=== PATIENT | male | born 1955 | race Caucasian/White ===

== ENCOUNTER 2018-12-24 06:15 | Inpatient (IN) | payer MEDICARE ==
[2018-12-24] VITALS (7 sets, daily range): BP systolic 108–134; BP diastolic 41–72; BMI 28.1
[~2018-12-24] VITALS: Ht 190.5 cm; Wt 101.1 kg
[2018-12-24] MEDS ORDERED: COREG6.25 MG PO (06:23)
[2018-12-24] MEDS ORDERED: LISINOPRIL5 MG (06:23)
[2018-12-24] MEDS ORDERED: FUROSEMIDE20 MG PO (06:24)
[2018-12-24] MEDS ORDERED: ZOCOR10 MG PO (06:24)
[2018-12-24] MEDS ORDERED: TYLENOL W/CODEI1 TAB PO (06:25)
[2018-12-24] MEDS ORDERED: BAYER CHEWABLE81 MG PO (06:25)
[2018-12-24] MEDS ORDERED: KRILL OIL 1,001 EAC1 PO (06:25)
[2018-12-24] MEDS ORDERED: HUMALOG 30100 UNITS/ SC (06:26)
[2018-12-24] MEDS ORDERED: HUMULIN N100 U/ML (06:26)
[2018-12-24 07:20] LABS: ALBUMIN 2.8 g/dL (3.4-5.0); ANION GAP 13.5 mmol/L (8-16); BILIRUBIN - TOTAL 0.55 mg/dL (0.2-1.3); CALCIUM 8.4 mg/dL (8.5-10.1); CARBON DIOXIDE 30.1 mmol/L (21.0-32.0); CREATININE - SERUM 1.3 mg/dL (0.6-1.3); POTASSIUM - SERUM 3.6 mmol/L (3.5-5.1); PROTEIN - SERUM 7.7 g/dL (6.4-8.2)
--- NOTE | 2018-12-24 07:35 | NUR ---
HAND-OFF REPORT RECEIVED FROM OFF GOING NURSE SALBADOR Redmond RN.
[2018-12-24 07:59] LABS: BASOPHILS 0.1 % (0-2); EOSINOPHILS 0 % (0-7); HEMATOCRIT 43.5 % (42.0-54.0); HEMOGLOBIN 13.7 g/dL (13.5-17.5); IMMATURE GRANULOCYTES 0.3 % (0-5); LYMPHOCYTES 3.9 % (15-50); MCH 30.8 pg (26.0-34.0); MCHC 31.5 g/dL (31.0-37.0); MCV 97.8 fL (80.0-100.0); MEAN PLATELET VOLUME 10.8 fL (7.4-10.4); MONOCYTES 4.2 % (2-11); NEUTROPHILS 91.5 % (40-80); RBC 4.45 10x6/uL (4.20-6.10); RDW 13.3 % (11.5-14.5); WBC 11.5 10x3/uL (4.8-10.8)
[2018-12-24 08:06] LABS: PLATELET COUNT 149 10x3/uL (130-400)
[2018-12-24 08:12] LABS: CKMB 2.3 U/L (0.0-3.6); CREATINE KINASE 180 UL (21-232); TROPONIN-I < 0.017 ng/mL (0.000-0.060)
[2018-12-24 08:16] LABS: APTT 29.9 SECONDS (22.8-39.4); INR 1.11 (0.85-1.17); PROTIME 13.8 SECONDS (11.6-15.0)
--- NOTE | 2018-12-24 10:05 | NUR ---
IV IN THE LEFT FOREARM INFILTRATED. SITE RED AND EDEMATOUS. ORDERED VANCOMYCIN INFUSION PAUSED, IV DC'D. WARM COMPRESS APPLIED TO THE LEFT FOREARM. WILL ATTEMPT ADDITIONAL IV START AND THEN CONTINUE WITH ORDERED INFUSION.
--- NOTE | 2018-12-24 10:16 | NUR ---
AWAITING ARRIVAL OF ORDERED CARDIZEM INFUSION FROM PHARMACY. LR BOLUS COMPLETE, VANCOMYCIN INFUSION RESTARTED IN THE RIGHT FOREARM.
--- NOTE | 2018-12-24 10:38 | NUR ---
ROOM 1205 ASSIGNED AT 0906, PT UNABLE TO GO TO THIS BED D/T CARDIZEM INFUSION. AWAITING NEW BED ASSIGNEMENT FROM LIBERAL ARTS DEAN.
--- NOTE | 2018-12-24 10:43 | NUR ---
PT PREVIOUSLY REQUESTED PAIN MEDICATION, OFFERED ORDERED PRN TYLENOL AND PT REFUSED. PT STATED "THAT ISN'T GOING TO DO ANYTHING."
--- NOTE | 2018-12-24 10:46 | NUR ---
22 GUAGE IV INITIATED IN THE LEFT WRIST PER Kanu BASHIR RN VASCULAR ACCESS NURSE. WILL BEGIN ORDERED CARDIZEM INFUSION.
--- NOTE | 2018-12-24 11:11 | NUR ---
ORDERED VANCOMYCIN COMPLETE AT 1110.
--- NOTE | 2018-12-24 11:30 | NUR ---
PT GIVEN ADA LUNCH TRAY ORDERED. PT ALERT AND ORIENTED, RESPIRATIONS EVEN AND UNLABORED. IV INFUSING WITHOUT SIGNS OF INFILTRATION. O2 IN PLACE VIA NC. PT AWARE HE IS BEING ADMITTED, AWAITING BED ASSIGNMENT. CALL LIGHT IN REACH, WILL CONTINUE TO MONITOR.
[2018-12-24] MEDS ORDERED: OTC COUGH SYRUP PO (11:33)
--- NOTE | 2018-12-24 12:18 | MORECARE ---
CASE MANAGEMENT DISCHARGE SUMMARY PATIENT: REBECA LAWSON UNIT: [id number] ADM DATE: 12/24/18 AGE: 63 : 54 SEX: M ROOM/BED: D.2127 AUTHOR: CECILIA QUINONEZ PHYSICIAN: REFERRING PHYSICIAN: TITI DAUGHERTY MD DATE OF SERVICE: 12/24/18 Discharge Plan Patient Name: REBECA LAWSON [facility] [facility] 1955 Planned Disposition: Home Anticipated Discharge Date: 12/26/18 Discharge Date: Expected LOS: 2 Initial Reviewer: [email or web address] Initial Review Date: 12/24/2018 Generated: 12/24/18 1:17 pm Patient Name: REBECA LAWSON Page [id number] at 1218 All edits/amendments must be made on the electronic document DICTATION DATE: 12/24/187 STAFF RESEARCH ASSOCIATE: AGUSTIN 12/24/18 1217 RPT#: [id number] DC DATE: STATUS: ADM IN [facility] [address] [place] [address] END OF REPORT
--- NOTE | 2018-12-24 12:26 | MORECARE ---
CASE MANAGEMENT DISCHARGE SUMMARY PATIENT: REBECA LAWSON UNIT: [id number] ADM DATE: 12/24/18 AGE: 63 : 54 SEX: M ROOM/BED: D.2127 AUTHOR: CECILIA QUINONEZ PHYSICIAN: REFERRING PHYSICIAN: TITI DAUGHERTY MD DATE OF SERVICE: 12/24/18 Discharge Plan Patient Name: REBECA LAWSON [facility] [facility] 1955 Planned Disposition: Home Anticipated Discharge Date: 12/26/18 Discharge Date: Expected LOS: 2 Initial Reviewer: [email or web address] Initial Review Date: 12/24/2018 Generated: 12/24/18 1:26 pm DCPIA - Discharge Planning Initial Assessment Updated by [email or web address]: Debbie Alexander on 12/24/18 12:20 pm * Is the patient Alert and Oriented? Yes * How many steps to enter\exit or inside your home? none * PCP Dr. Daugherty * Pharmacy [facility] * Preadmission Environment Home Alone * ADLs Independent * Equipment Cane Glucometer Power Chair or Electric Scooter * List name and contact numbers for known caregivers / representatives who currently or will assist patient after discharge: Meagan Quinteros - lands resource manager - [phone] * Verbal permission to speak to the caregivers and representatives has been obtained from the patient. Yes * Community resources currently utilized None * Additional services required to return to the preadmission environment? No * Can the patient safely return to the preadmission environment? Yes * Has this patient been hospitalized within the prior 30 days at any hospital? No Last DP export: 12/24/18 11:17 a Patient Name: REBECA LAWSON Page [phone] at 1226 All edits/amendments must be made on the electronic document DICTATION DATE: 12/24/18 1226 ELECTRONIC GAME DEVELOPER: AGUSTIN 12/24/186 RPT#: [id number] DC DATE: STATUS: ADM IN [facility] [address] [place] [address] END OF REPORT
--- NOTE | 2018-12-24 12:42 | MORECARE ---
CASE MANAGEMENT DISCHARGE SUMMARY PATIENT: REBECA LAWSON UNIT: [id number] ADM DATE: 12/24/18 AGE: 63 : 54 SEX: M ROOM/BED: D.6360 AUTHOR: DEVIDOC PHYSICIAN: REFERRING PHYSICIAN: TITI DAUGHERTY MD DATE OF SERVICE: 12/24/18 Discharge Plan Patient Name: REBECA LAWSON Facility: [facility]:[place] : 1955 Planned Disposition: Home Anticipated Discharge Date: 12/26/18 Discharge Date: Expected LOS: 2 Initial Reviewer: [email or web address] Initial Review Date: 12/24/2018 Generated: 12/24/18 1:41 pm DCP- Discharge Planning Updated by [email or web address]: Debbie Alexander on 12/24/18 11:[address] Patient Name: REBECA LAWSON Admission Status: ER Accout number: [id number] Admission Date: 12-24-2018 : 1955 Admission Diagnosis: Attending: TITI DAUGHERTY Current LOS: 1 Anticipated DC Date: 12-26-2018 Planned Disposition: Home Primary Insurance: [facility] MEDICARE SOLUTIONS Discharge Planning Comments: CM met with patient to complete initial dc planning assessment. CM educated patient on the CM role and verbal consent given by patient to complete assessment. Patient lives at home alone and reports he is independent in his care at home. At discharge patient plans to return home alone and feels this is a safe discharge. CM discussed availability of home health, rehab services, and medical equipment. Patient denied known discharge needs at this time. He said he may need something but not sure today. CM will continue to follow and will assist as needed with dc plans/needs. Director Strategic Planning: Debbie Alexander RN, [facility] DCPIA - Discharge Planning Initial Assessment Updated by [email or web address]: Debbie Alexander on 12/24/18 12:20 pm * Is the patient Alert and Oriented? Yes * How many steps to enter\exit or inside your home? none * PCP Dr. Daugherty * Pharmacy [facility] on [facility] * Preadmission Environment Home Alone * ADLs Independent * Equipment Cane Glucometer Power Chair or Electric Scooter * List name and contact numbers for known caregivers / representatives who currently or will assist patient after discharge: Meagan Quinteros - accounting advisory services manager - [phone] * Verbal permission to speak to the caregivers and representatives has been obtained from the patient. Yes * Community resources currently utilized None * Additional services required to return to the preadmission environment? No * Can the patient safely return to the preadmission environment? Yes * Has this patient been hospitalized within the prior 30 days at any hospital? No Last DP export: 12/24/18 11:26 a Patient Name: REBECA LAWSON Page [phone] at 1242 All edits/amendments must be made on the electronic document DICTATION DATE: 12/24/18 124 EXCHANGE ENGINEER: AGUSTIN 12/24/18 1241 RPT#: [id number] DC DATE: STATUS: ADM IN [facility] [address] [place] [address] END OF REPORT
[2018-12-24 16:52] LABS: COLOR YELLOW (YELLOW)
[2018-12-24 16:53] LABS: APPEARANCE CLEAR (CLEAR); BILIRUBIN NEGATIVE (NEGATIVE); GLUCOSE 1000 mg/dL (NEGATIVE); KETONE NEGATIVE (NEGATIVE); NITRITE NEGATIVE (NEGATIVE); PROTEIN NEGATIVE (NEGATIVE); SPECIFIC GRAVITY 1.025 (1.005-1.020); UROBILINOGEN NORMAL (NORMAL)
--- NOTE | 2018-12-24 17:50 | NUR ---
PATIENT ADMITTED TO UNIT FROM ER VIA WC. PATIENT TRANSFERED TO BED BY PT. PATIENT ORIENTED TO ROOM AND CALL LIGHT. IV TO LEFT FOREARM WITH CARDIZEM DRIP 5MG/HR. 02 AT 2 L PER NC. ASSESSMENT COMPLETED. PATIENT DENIES ANY NEEDS OR PAIN. WILL CONTINUE WITH PLAN OF CARE. SR UP X 2 BED IN LOW POSITION AND CALL LIGHT IN REACH.
--- NOTE | 2018-12-24 18:28 | NUR ---
DR MCKEON IN ROOM. VSS STABLE AND PATIENT UNCHAGED. WILL CONTINUE TO MONITOR.
--- NOTE | 2018-12-24 19:37 | NUR ---
EVENING ROUNDS COMPLETED. REPORT RECEIVED. PT SITTING UP IN BED WITH EYES OPEN, RR EVEN AND UNLABORED. BED IN LOW POSITION. NO S/S OF DISTRESS NOTED. CARDIZEM INFUSING THROUGH LEFT WRIST PIV. TELEMETRY ESTABLISHED. PROVIDED PT EDUCATION ON NECESSITY OF TELEMETRY. DENIES FURTHER NEEDS AT THIS TIME. CALL LIGHT IN REACH. WILL CTM.
--- NOTE | 2018-12-24 23:30 | NUR ---
AT 2100 TREATED PT BLOOD SUGAR OF 442 ACCORDING TO SLIDING SCALE, AFTER 2 HOURS RECHECKED PT BLOOD SUGAR, IT WAS 393. TREATED THE BLOOD SUGAR ACCORDING TO THE SLIDING SCALE. WILL CTM.
--- NOTE | 2018-12-25 | NUR ---
I have reviewed this patient and I concur with the Shift Assessment completed by the Licensed Practical Nurse today this shift.
[2018-12-25 00:09] VITALS: BP 125/88
[2018-12-25] MEDS ORDERED: NEURONTIN 300300 MG PO (00:35)
[2018-12-25 04:11] VITALS: BP 107/55
[2018-12-25 05:26] LABS: BASOPHILS 0.1 % (0-2); EOSINOPHILS 0 % (0-7); HEMATOCRIT 40.8 % (42.0-54.0); HEMOGLOBIN 12.9 g/dL (13.5-17.5); IMMATURE GRANULOCYTES 0.4 % (0-5); LYMPHOCYTES 1.9 % (15-50); MCH 30.6 pg (26.0-34.0); MCHC 31.6 g/dL (31.0-37.0); MCV 96.7 fL (80.0-100.0); MEAN PLATELET VOLUME 10.9 fL (7.4-10.4); MONOCYTES 2.1 % (2-11); NEUTROPHILS 95.5 % (40-80); PLATELET COUNT 164 10x3/uL (130-400); RBC 4.22 10x6/uL (4.20-6.10); RDW 13.3 % (11.5-14.5)
[2018-12-25 05:32] LABS: ALBUMIN 2.7 g/dL (3.4-5.0); ALKALINE PHOSPHATASE 107 U/L (46-116); BILIRUBIN - TOTAL 0.36 mg/dL (0.2-1.3); CALCIUM 8.7 mg/dL (8.5-10.1); CARBON DIOXIDE 33.6 mmol/L (21.0-32.0); CHLORIDE - SERUM 99 mmol/L (98-107); PROTEIN - SERUM 7.6 g/dL (6.4-8.2); SODIUM 136 mmol/L (136-145); UREA NITROGEN 24 mg/dL (7-18); eGFR NON AFRICAN AMERICAN 80 mL/min (90-120)
[2018-12-25 05:34] LABS: WBC 16.8 10x3/uL (4.8-10.8)
[2018-12-25 05:42] LABS: ALT (SGPT) 17 U/L (10-68); CALC OSMOLALITY 286 mosm/kg (275-300); GLUCOSE 305 mg/dL (74-106); POTASSIUM - SERUM 4.4 mmol/L (3.5-5.1)
--- NOTE | 2018-12-25 06:19 | NUR ---
284 BLOOD SUGAR TREATED ORDERED PER SLIDING SCALE. ADMINISTERED ORDERED ANALGESIC FOR COMPLAINTS OF PAIN IN LOWER EXTREMITIES. PT APPEARS TO BE UPSET THAT HIS PRESCRIBED NEURONTIN WAS NOT ADMINISTERED, I STATED TO HIM THAT I WOULD PASS ON THIS INFORMATION TO THE ONCOMING NURSE.
--- NOTE | 2018-12-25 07:40 | NUR ---
ASSESSMENT DONE. DENIES NEEDS.
[2018-12-25 08:18] VITALS: BP 123/66
[2018-12-25 11:30] VITALS: BP 97/48
--- NOTE | 2018-12-25 15:09 | NUR ---
I have reviewed this patient and I concur with the Shift Assessment completed by the Licensed Practical Nurse today this shift.
[2018-12-25 15:30] VITALS: BP 98/57
--- NOTE | 2018-12-25 17:44 | NUR ---
WITHOUT CHANGES OR DISTRESS NOTED AT THIS TIME. DENIES NEEDS.
[2018-12-25 18:20] VITALS: Ht 190.5 cm; Wt 101.1 kg
--- NOTE | 2018-12-25 18:30 | HP ---
PATIENT: REBECA LAWSON MEDICAL RECORD: [id number] ACCOUNT: [id number] LOCATION:[address] : [birth year] ADMISSION DATE: 12/24/18 PCP: TITI DAUGHERTY MD HISTORY AND PHYSICAL EXAMINATION CHIEF COMPLAINT: Weakness. HISTORY OF PRESENT ILLNESS: This is a 63-year-old white male who has a history of diabetes, chronic back pain, coronary artery disease, and a history of non-small cell lung cancer treated with chemo and radiation by Dr. Choudhary years ago. He has been in remission. He had acute episode of generalized weakness over the last several days. He got up to go the bathroom last night and fell down. He was too weak to get up. He was on the floor for a few hours before he was able to get EMS to come and bring him to the ER. Chest x-ray shows near complete obscuration of right hemithorax with loculated pleural effusion and pneumonia. EKG also showed atrial fibrillation. He is admitted for further care. PAST MEDICAL HISTORY: 1. Type 2 diabetes, on insulin. 2. Nonsmall cell lung cancer 3. Chronic back pain. 4. Coronary artery disease. 5. Cataracts. PAST SURGICAL HISTORY: Cataract repair, [address] Clarke, left shoulder surgery, and knee surgery times 3. ALLERGIES: No known drug allergies. HOME MEDICATIONS: Tylenol #3 one to two every 8 hours as needed for pain, carvedilol 6.25 mg twice a day, Lantus insulin 50 units twice a day, gabapentin 400 mg 1-2 t.i.d. for pain, Krill oil as directed, simvastatin 20 mg a day, lisinopril 10 mg a day, Lasix 40 mg a day, Humalog 20 mg twice a day, and aspirin 325 mg once a day. SOCIAL HISTORY: Lives alone. HABITS: Never smoked. No alcohol or drugs. FAMILY HISTORY: Father at 80 of natural causes. Mother in a car wreck. REVIEW OF SYSTEMS: GENERAL: No major weight changes. HEENT: No particular sinus or allergy problems. RESPIRATORY: Has history of lung cancer. He is having some chest pains when I saw him about a month ago in the office. He had a chest x-ray then that showed some white out most likely the pleural effusion, but most of his pain is on the left side. CARDIAC: No chest pain. GASTROINTESTINAL: Denies diarrhea, constipation, or heartburn. GENITOURINARY: No significant problems there. MUSCULOSKELETAL: He has arthritis, chronic back pain. NEUROLOGIC: No migraines or seizures. HISTORY AND PHYSICAL [id number] REBECA LAWSON PSYCHIATRIC: Denies depression or melancholia. PHYSICAL EXAMINATION: VITAL SIGNS: Temperature 98.5, pulse 100, respirations 19, blood pressure 115/47, O2 sat 96%. GENERAL: He does not feel well. SKIN: Warm and dry. HEENT: Grossly within normal limits. NECK: Supple. HEART: Regular rate and rhythm now. LUNGS: Decreased breath sounds on the right side, a few scattered wheezes. ABDOMEN: Soft. EXTREMITIES: A 1+ edema. LABORATORY DATA: Influenza tests were negative. Lactic acid level 2.5. CBC with a white count of 11,500, hemoglobin 13.7, hematocrit 43.5, platelet count 149,000. INR 1.11. Sodium 135, potassium 3.6, chloride 95, CO2 30.1, BUN 20, creatinine 1.3, glucose 230, calcium 8.4. Liver enzymes are all normal. Troponin less than 0.017. ASSESSMENT: 1. Pneumonia and pleural effusion. 2. History of non-small cell lung cancer. 3. Diabetes. 4. Atrial fibrillation. 5. History of coronary artery disease. PLAN: We will ask pulmonary to see him. Consult cardiology. He is started on antibiotics. Other tests or procedures as warranted. TRANSINT:[id number] Voice Confirmation ID: [id number] DOCUMENT ID: [id number] TITI DAUGHERTY MD at 1830 CC: [id number] DICTATION DATE: 12/24/18 1406 WET FINISHER: 12/24/18 1458 ADM IN [facility] [address] [place] [address]
[2018-12-25 19:45] VITALS: BP 123/64
--- NOTE | 2018-12-25 20:45 | NUR ---
RECIEVED UP IN BED WITH EYES CLOSED. EASILY AROUSES WITH VERBAL STIMULI. TELEMETRY IN PLACE. FEET ARE DISCOLORED AND HAVE +4 PITTING EDEMA. PULLED IV OUT WILL ATTEMPT TO AQUIRE IV ACCESS. DENIES ANY NEEDS.
[2018-12-26 00:29] VITALS: BP 114/45
[2018-12-26 03:55] VITALS: BP 110/48
[2018-12-26 04:58] LABS: BASOPHILS 0 % (0-2); EOSINOPHILS 0 % (0-7); HEMATOCRIT 39.4 % (42.0-54.0); HEMOGLOBIN 12.6 g/dL (13.5-17.5); IMMATURE GRANULOCYTES 0.4 % (0-5); LYMPHOCYTES 1.6 % (15-50); MCH 30.7 pg (26.0-34.0); MCV 95.9 fL (80.0-100.0); MONOCYTES 3.6 % (2-11); NEUTROPHILS 94.4 % (40-80); RBC 4.11 10x6/uL (4.20-6.10); RDW 13.5 % (11.5-14.5); WBC 18.2 10x3/uL (4.8-10.8)
[2018-12-26 05:07] LABS: PLATELET COUNT 199 10x3/uL (130-400)
[2018-12-26 05:12] LABS: INR 1.09 (0.85-1.17); PROTIME 13.6 SECONDS (11.6-15.0)
[2018-12-26 05:15] LABS: CALC OSMOLALITY 286 mosm/kg (275-300); CALCIUM 8.6 mg/dL (8.5-10.1); CARBON DIOXIDE 34.5 mmol/L (21.0-32.0); CHLORIDE - SERUM 99 mmol/L (98-107); CREATININE - SERUM 0.8 mg/dL (0.6-1.3); GLUCOSE 277 mg/dL (74-106); LDH 186 U/L (85-227); POTASSIUM - SERUM 3.9 mmol/L (3.5-5.1); SODIUM 136 mmol/L (136-145); UREA NITROGEN 27 mg/dL (7-18); eGFR NON AFRICAN AMERICAN > 90 mL/min (90-120)
--- NOTE | 2018-12-26 07:12 | NUR ---
ASSESSMENT DONE. DENIES NEEDS.
--- NOTE | 2018-12-26 08:03 | NUR ---
I have reviewed this patient and I concur with the Shift Assessment completed by the Licensed Practical Nurse today this shift.
[2018-12-26 09:00] VITALS: BP 103/55
[2018-12-26 12:41] VITALS: BP 122/61
[2018-12-26 16:25] VITALS: BP 120/51
--- NOTE | 2018-12-26 17:46 | NUR ---
WITHOUT CHANGES OR DISTRESS NOTED AT THIS TIME. DENIES NEEDS.
--- NOTE | 2018-12-26 19:15 | NUR ---
EVENING ROUNDS COMPLETED. REPORT RECEIVED. PT SITTING UP IN BEDSIDE CHAIR WITH EYES OPEN, RR EVEN AND UNLABORED. INTRODUCED SELF TO PT. PT DENIES FURTHER NEEDS AT THIS TIME. NO S/S OF DISTRESS NOTED. CALL LIGHT IN REACH. WILL CTM.
[2018-12-26 20:26] VITALS: BP 122/65
--- NOTE | 2018-12-26 23:36 | NUR ---
I have reviewed this patient and I concur with the Shift Assessment completed by the Licensed Practical Nurse today this shift.
[2018-12-27 01:37] VITALS: BP 107/55
--- NOTE | 2018-12-27 04:44 | NUR ---
ADMINISTERED ORDERED ANALGESIC FOR PT COMPLAINTS OF PAIN IN BACK. DENIES FURTHER NEEDS AT THIS TIME. CALL LIGHT IN REACH. WILL CTM.
[2018-12-27 05:31] VITALS: BP 117/59
[2018-12-27 06:16] LABS: BASOPHILS 0 % (0-2); EOSINOPHILS 0 % (0-7); HEMOGLOBIN 12.6 g/dL (13.5-17.5); IMMATURE GRANULOCYTES 0.3 % (0-5); LYMPHOCYTES 2.1 % (15-50); MCH 30.4 pg (26.0-34.0); MCHC 31.5 g/dL (31.0-37.0); MCV 96.6 fL (80.0-100.0); MEAN PLATELET VOLUME 10.8 fL (7.4-10.4); MONOCYTES 2.2 % (2-11); NEUTROPHILS 95.4 % (40-80); PLATELET COUNT 206 10x3/uL (130-400); RBC 4.14 10x6/uL (4.20-6.10); RDW 13.5 % (11.5-14.5); WBC 15.3 10x3/uL (4.8-10.8)
[2018-12-27 06:27] LABS: CALC OSMOLALITY 291 mosm/kg (275-300); CALCIUM 8.7 mg/dL (8.5-10.1); CHLORIDE - SERUM 99 mmol/L (98-107); CREATININE - SERUM 0.9 mg/dL (0.6-1.3); GLUCOSE 292 mg/dL (74-106); POTASSIUM - SERUM 4.3 mmol/L (3.5-5.1); SODIUM 138 mmol/L (136-145); UREA NITROGEN 27 mg/dL (7-18); eGFR NON AFRICAN AMERICAN 90 mL/min (90-120)
--- NOTE | 2018-12-27 08:00 | NUR ---
RECEIVED A/A/0X4. REMAINS NPO FOR THORACENTESES TODAY AND VERBALIZES UNDERSTANDING. NO REQUESTS VOICED. DENEIS ANY PAIN OR DISCOMFORT. UP AND ABOUT AD VIKRAM IN ROOM WITH AIDE OF HIS CANE. FEET 4+ PITTING EDEMA BILATERALLY WITH WEAK PULSES AND COOL TO TOUCH. PT STATES HIS FEET HAVE BEEN LIKE THAT FOR NEARLY 40 YEARS. BED IN LOW POSITION AND LOCKED, SIDERAILS UP X 2 AND CALL LIGHT IN REACH. PT UP IN BEDSIDE CHAIR AT PRESENT TIME. WILL CONTINUE POC
[2018-12-27 08:23] VITALS: BP 123/64
[2018-12-27 11:52] VITALS: BP 136/82
--- NOTE | 2018-12-27 12:56 | NUR ---
Nutrition follow-up: Pt is now NPO for thoracentesis today PO intake of low sodium diet has been ~65% of last 7 meals Labs reviewed Glucose elevated due to SoluMedrol use Wt: 225# +BM RDN following.
--- NOTE | 2018-12-27 18:53 | NUR ---
RECIEVED SITTING UP ON SIDE OF BED. ALERT AND ORIENTED X4. REQUIRES ASSIST TO TRANSFER. FEET REMAIN DISCOLRED AND SWOLLEN WITH RIGHT FOOT LARGER THAN LEFT. DRESSING TO RIGHT SIDE OF BACK. CDI. DENIES ANY NEEDS AT THIS TIME.
[2018-12-27 19:01] LABS: PROTEIN - BODY FLUID 4.1 G/DL
[2018-12-27 21:00] LABS: MACROPHAGES BF 5 %; NEUT - BF 12 %
[2018-12-27 21:23] VITALS: BP 149/81
[2018-12-28] VITALS (7 sets, daily range): BP systolic 106–140; BP diastolic 54–77
[2018-12-28 06:54] LABS: BASOPHILS 0 % (0-2); EOSINOPHILS 0 % (0-7); HEMATOCRIT 43.6 % (42.0-54.0); IMMATURE GRANULOCYTES 0.2 % (0-5); LYMPHOCYTES 2.1 % (15-50); MCH 30.6 pg (26.0-34.0); MCHC 32.1 g/dL (31.0-37.0); MCV 95.4 fL (80.0-100.0); MEAN PLATELET VOLUME 10.7 fL (7.4-10.4); MONOCYTES 4.8 % (2-11); NEUTROPHILS 92.9 % (40-80); PLATELET COUNT 226 10x3/uL (130-400); RBC 4.57 10x6/uL (4.20-6.10); RDW 13.2 % (11.5-14.5); WBC 12.6 10x3/uL (4.8-10.8)
--- NOTE | 2018-12-28 07:15 | NUR ---
RECEIVED BEDSIDE SHIFT REPORT. ASSUMED CARE OF PATIENT. SITTING UP IN BED WITH EYES OPEN. CALL LIGHT WITHIN REACH. DENIES NEEDS THIS AM. BACK IS STILL HURTING BUT HAD PAIN MEDICATION AT 0544. NO DISTRESS. RESP EVEN AND UNLABORED.
[2018-12-28 07:19] LABS: ANION GAP 8.7 mmol/L (8-16); CARBON DIOXIDE 34.4 mmol/L (21.0-32.0); CREATININE - SERUM 1.1 mg/dL (0.6-1.3); POTASSIUM - SERUM 4.1 mmol/L (3.5-5.1)
[2018-12-28 07:31] LABS: CALCIUM 8.7 mg/dL (8.5-10.1)
[2018-12-28 07:31] LABS: IMMUNOGLOBULIN A 406 mg/dL (61-437)
--- NOTE | 2018-12-28 07:38 | NUR ---
PATIENT REFUSED METANEB TX DUE TO PAIN FROM PROCEDURE YESTERDAY. HE DID AGREE TO REGULAR BREATHING TX
--- NOTE | 2018-12-28 10:18 | NUR ---
TELEMETRY REMOVED ORDERED.
--- NOTE | 2018-12-28 11:29 | NUR ---
FSBS 279. 10 UNITS HUMULIN R ADMINISTERED PER SLIDING SCALE. NO DISTRESS.
--- NOTE | 2018-12-28 14:18 | NUR ---
MEDICATED FOR PAIN AT THIS TIME. NO DISTREESS.
--- NOTE | 2018-12-28 16:51 | NUR ---
FSBS 446. 20 UNITS ADMINISTERED PER SLIDING SCALE. NO FURTHER ORDERS RECEIVED. WILL RECHECK AT 181
--- NOTE | 2018-12-28 18:07 | NUR ---
FSBS RECHECKED AND 396 AFTER RECEIVING INSULIN AND CONSUMING PM MEAL.
--- NOTE | 2018-12-28 19:00 | NUR ---
UP IN CHAIR ASSISTED TO GET READY FOR BED. LCTA AND SKIN WARM AND DRY LOCKED BED AND BED IS LOW AND CALL LIGHT IN REACH
--- NOTE | 2018-12-29 03:51 | NUR ---
I have reviewed this patient and I concur with the Shift Assessment completed by the Licensed Practical Nurse today this shift.
[2018-12-29 05:06] LABS: BASOPHILS 0.1 % (0-2); EOSINOPHILS 0 % (0-7); HEMATOCRIT 41.6 % (42.0-54.0); HEMOGLOBIN 13.5 g/dL (13.5-17.5); IMMATURE GRANULOCYTES 0.4 % (0-5); LYMPHOCYTES 5.1 % (15-50); MCH 30.5 pg (26.0-34.0); MCHC 32.5 g/dL (31.0-37.0); MCV 94.1 fL (80.0-100.0); MEAN PLATELET VOLUME 10.9 fL (7.4-10.4); MONOCYTES 5.1 % (2-11); NEUTROPHILS 89.3 % (40-80); PLATELET COUNT 221 10x3/uL (130-400); RBC 4.42 10x6/uL (4.20-6.10); RDW 12.9 % (11.5-14.5); WBC 15.2 10x3/uL (4.8-10.8)
[2018-12-29 05:21] VITALS: BP 117/63
[2018-12-29 05:23] LABS: CALC OSMOLALITY 283 mosm/kg (275-300); CALCIUM 8.6 mg/dL (8.5-10.1); CARBON DIOXIDE 33.8 mmol/L (21.0-32.0); CHLORIDE - SERUM 98 mmol/L (98-107); CREATININE - SERUM 0.9 mg/dL (0.6-1.3); SODIUM 135 mmol/L (136-145); UREA NITROGEN 31 mg/dL (7-18); eGFR NON AFRICAN AMERICAN 90 mL/min (90-120)
[2018-12-29 05:24] LABS: GLUCOSE 225 mg/dL (74-106)
--- NOTE | 2018-12-29 07:15 | NUR ---
PT SITTING UP IN BED. ALERT AND ORIENTED. URINAL EMTPIED. PT HAS NO FURTHER NEEDS AT THIS TIME. BED LOW. CL IN REACH.
--- NOTE | 2018-12-29 07:39 | NUR ---
PATIENT REFUSED METANEB DUE TO PAIN FROM PROCEDURE
[2018-12-29 08:22] VITALS: BP 122/72
--- NOTE | 2018-12-29 10:00 | NUR ---
PT BATHED SELF EXCEPT FEET AND BACK DIRECTOR OF KIDS HELPED PT WITH THAT. PT DID THIS WHILE SITTING IN RECLINER.
[2018-12-29 12:07] VITALS: BP 115/90
--- NOTE | 2018-12-29 14:05 | NUR ---
I have reviewed this patient and I concur with the Shift Assessment completed by the Licensed Practical Nurse today this shift.
[2018-12-29 14:19] LABS: FUNGUS STAIN Final report (())
--- NOTE | 2018-12-29 14:51 | MORECARE ---
CASE MANAGEMENT DISCHARGE SUMMARY PATIENT: REBECA LAWSON UNIT: [id number] ADM DATE: 12/24/18 AGE: 63 : 53 SEX: M ROOM/BED: D.0465 AUTHOR: CECILIA QUINONEZ PHYSICIAN: REFERRING PHYSICIAN: TITI DAUGHERTY MD DATE OF SERVICE: 12/29/18 Discharge Plan Patient Name: REBECA LAWSON Facility: [facility]:[place] : 1955 Planned Disposition: Home with Home Health Anticipated Discharge Date: 12/30/18 Discharge Date: Expected LOS: 6 Initial Reviewer: [email or web address] Initial Review Date: 12/24/2018 Generated: 12/29/18 3:51 pm DCP- Discharge Planning Updated by [email or web address]: Debbie Alexander on 12/24/18 11:[address] Patient Name: REBECA LAWSON Admission Status: ER Accout number: [id number] Admission Date: 12-24-2018 : 1955 Admission Diagnosis: Attending: TITI DAUGHERTY Current LOS: 1 Anticipated DC Date: 12-26-2018 Planned Disposition: Home Primary Insurance: [facility] MEDICARE SOLUTIONS Discharge Planning Comments: CM met with patient to complete initial dc planning assessment. CM educated patient on the CM role and verbal consent given by patient to complete assessment. Patient lives at home alone and reports he is independent in his care at home. At discharge patient plans to return home alone and feels this is a safe discharge. CM discussed availability of home health, rehab services, and medical equipment. Patient denied known discharge needs at this time. He said he may need something but not sure today. CM will continue to follow and will assist as needed with dc plans/needs. Ground Crewman Aircraft Support: Debbie Alexander RN, [facility] DCPIA - Discharge Planning Initial Assessment Updated by [id number]: Debbie Alexander on 12/24/18 12:20 pm * Is the patient Alert and Oriented? Yes * How many steps to enter\exit or inside your home? none * PCP Dr. Daugherty * Pharmacy [facility]/[place] * Preadmission Environment Home Alone * ADLs Independent * Equipment Cane Glucometer Power Chair or Electric Scooter * List name and contact numbers for known caregivers / representatives who currently or will assist patient after discharge: Meagan Quinteros - client delivery manager - [phone] * Verbal permission to speak to the caregivers and representatives has been obtained from the patient. Yes * Community resources currently utilized None * Additional services required to return to the preadmission environment? No * Can the patient safely return to the preadmission environment? Yes * Has this patient been hospitalized within the prior 30 days at any hospital? No External Providers [facility] Next Contact Date: 12/29/2018 Service Request Date: Service Type: Resolution: Reviewer: Comments: Coverage Notice Reviewer: [email or web address] Kimble Notice Issued Date-Time: 12/29/2018 9:25 Notice Type: IM Discharge Notice Notice Delivered To: Patient Relationship to Patient: Operator/Assistant Foreman Name: Delivery Method: HAND - Hand Delivered Adri Days: Prior Verbal Notification: Recipient Understood Notice: Yes Recipient Signature: Yes Med Rec Note Co-signed by Attending: Coverage Notice Comment: Reviewer: GARRET Kimble Notice Issued Date-Time: 12/29/2018 9:25 Notice Type: Patient Choice Letter Notice Delivered To: Patient Relationship to Patient: Operator/Assistant Foreman Name: Delivery Method: HAND - Hand Delivered Adri Days: Prior Verbal Notification: Recipient Understood Notice: Yes Recipient Signature: Yes Med Rec Note Co-signed by Attending: Coverage Notice Comment: [employer], LONG IN NETWORK WITH INSURANCE Last DP export: 12/24/18 11:41 a Patient Name: REBECA LAWSON Page [phone] at 1451 All edits/amendments must be made on the electronic document DICTATION DATE: 12/29/181450 WORKPLACE RELATIONS ADVISER: AGUSTIN 12/29/18 145 RPT#: [id number] DC DATE: STATUS: ADM IN [facility] [address] [place] [address] END OF REPORT
[2018-12-29 15:30] VITALS: BP 117/90
--- NOTE | 2018-12-29 15:32 | MORECARE ---
CASE MANAGEMENT DISCHARGE SUMMARY PATIENT: REBECA LAWSON UNIT: [id number] ADM DATE: 12/24/18 AGE: 63 : 53 SEX: M ROOM/BED: D.7551 AUTHOR: DEVI,DOC PHYSICIAN: REFERRING PHYSICIAN: TITI DAUGHERTY MD DATE OF SERVICE: 12/29/18 Discharge Plan Patient Name: REBECA LAWSON Facility: [facility]:[place] : 1955 Planned Disposition: Home with Home Health Anticipated Discharge Date: 12/30/18 Discharge Date: Expected LOS: 6 Initial Reviewer: [id number] Initial Review Date: 12/24/2018 Generated: 12/29/18 4:32 pm Comments DCP- Discharge Planning Updated by [email or web address]: Balwinder Kimble on 12/29/18 2:[address] Patient Name: REBECA LAWSON Encounter No: [id number] : 1955 Primary Insurance: [facility] MEDICARE SOLUTIONS Anticipated DC Date: 12-30-2018 Planned Disposition: Home with Home Health External Planned Provider: : [facility] DCP follow-up note: CM RECEIVED HOME HEALTH ORDER, MET WITH PT IN ROOM, DISCUSSED AVAILABILITY OF HOME HEALTH, REHAB SERVICES AND MEDICAL EQUIPMENT. PT DENIES NEED OF REHAB PLACEMENT, PT STATES HE DOES NOT NEED PHYSICAL THERAPY WITH HOME HEALTH HE FEELS THAT HE WOULD NOT BENEFIT FROM THERAPY. PT WOULD LIKE HOME HEALTH NURSE TO CHECK ON HIM AND AIDE TO HELP HIM BATHE; PT ASKED ABOUT HAVING RESEARCH MANAGEMENT ASSOCIATE SERVICES TO SIT WITH HIM AT NIGHT. CM EXPLAINED THAT PT'S INSURANCE WILL NOT PAY FOR RESEARCH MANAGEMENT ASSOCIATE SERVICES AND PROVIDED NUMBER AND BROCHURE TO " A PLACE FOR MOM" TO ASSIST WITH EVALUATING PT'S FINANCIAL SITUATION AND REFERRAL TO APPROPRIATE HOME CARE AGENCY. PT DENIES THE NEED AT THIS TIME. PT REPORTS A FRIEND WILL TRANSPORT HOME AT DISCHARGE. CHOICE LISTING FOR HOME HEALTH PROVIDED, PT SIGNED CHOICE FOR [facility]. IMPORTANT MESSAGE FROM MEDICARE PROVIDED AND EXPLAINED. CM CALLED [facility], , SPOKE TO YOANDY, REFERRAL PROVIDED, PT PLACED ON SCHEDULE FOR THURSDAY, THEY ARE IN NETWORK WITH PT'S INSURANCE. CM FAXED REFERRALTO [facility] AT [phone]. PT NOTIFIED AND IN AGREEMENT WITH DISCHARGE PLAN. FOR DISCHARGE, CALL AND NOTIFY [facility], , FAX DISCHARGE INFORMATION TO [facility] AT [phone]. Balwinder Kimble, CASE MANAGEMENT DCP- Discharge Planning Updated by [id number]: Debbie Alexander on 12/24/18 11:[address] Patient Name: REBECA LAWSON Admission Status: ER Accout number: [id number] Admission Date: 12-24-2018 : 1955 Admission Diagnosis: Attending: TITI DAUGHERTY Current LOS: 1 Anticipated DC Date: 12-26-2018 Planned Disposition: Home Primary Insurance: [facility] MEDICARE SOLUTIONS Discharge Planning Comments: CM met with patient to complete initial dc planning assessment. CM educated patient on the CM role and verbal consent given by patient to complete assessment. Patient lives at home alone and reports he is independent in his care at home. At discharge patient plans to return home alone and feels this is a safe discharge. CM discussed availability of home health, rehab services, and medical equipment. Patient denied known discharge needs at this time. He said he may need something but not sure today. CM will continue to follow and will assist as needed with dc plans/needs. Electrician Rectifier Maintenance: Debbie Alexander RN, [facility] DCPIA - Discharge Planning Initial Assessment Updated by [id number]: Debbie Alexander on 12/24/18 12:20 pm * Is the patient Alert and Oriented? Yes * How many steps to enter\\exit or inside your home? none * PCP Dr. Daugherty * Pharmacy [facility] on [facility] * Preadmission Environment Home Alone * ADLs Independent * Equipment Cane Glucometer Power Chair or Electric Scooter * List name and contact numbers for known caregivers / representatives who currently or will assist patient after discharge: Meagan Quinteros - hourly shift manager - [phone] * Verbal permission to speak to the caregivers and representatives has been obtained from the patient. Yes * Community resources currently utilized None * Additional services required to return to the preadmission environment? No * Can the patient safely return to the preadmission environment? Yes * Has this patient been hospitalized within the prior 30 days at any hospital? No Coverage Notice Reviewer: [id number] - Balwinder Kimble Notice Issued Date-Time: 12/29/2018 9:25 Notice Type: IM Discharge Notice Notice Delivered To: Patient Relationship to Patient: Consumer Loan Officer Name: Delivery Method: HAND - Hand Delivered Adri Days: Prior Verbal Notification: Recipient Understood Notice: Yes Recipient Signature: Yes Med Rec Note Co-signed by Attending: Coverage Notice Comment: Reviewer: [id number] Iván Kimble Notice Issued Date-Time: 12/29/2018 9:25 Notice Type: Patient Choice Letter Notice Delivered To: Patient Relationship to Patient: Consumer Loan Officer Name: Delivery Method: HAND - Hand Delivered Adri Days: Prior Verbal Notification: Recipient Understood Notice: Yes Recipient Signature: Yes Med Rec Note Co-signed by Attending: Coverage Notice Comment: [facility], LONG IN NETWORK WITH INSURANCE Last DP export: 12/29/18 1:51 p Patient Name: REBECA LAWSON Page [id number] at 1532 All edits/amendments must be made on the electronic document DICTATION DATE: 12/29/18 153 PSYCHOLOGICAL OPERATIONS: AGUSTIN 12/29/18 1531 RPT#: [id number] DC DATE: STATUS: ADM IN [facility] [address] [place] [address] END OF REPORT
--- NOTE | 2018-12-29 15:35 | NUR ---
PT SITTING IN RECLINER CHAIR. CL IN REACH.
[2018-12-29 15:45] LABS: TRIGLYCERIDE - BODY FLUID 236 mg/dL
[2018-12-29 15:52] LABS: CHOLESTEROL - BODY FLUID 21 mg/dL
--- NOTE | 2018-12-29 18:55 | NUR ---
AWAKE AND ALERT MAKING NEEDS KNOWN OX4. SITTING UP IN CHAIR AT THIS TIME AND FEET ARE SWOLLEN BILAT. DENIES NEEDS BED IS LOCKED AND LOW AND CALL LIGHT IS WITHIN REACH
[2018-12-29 20:07] LABS: ACID FAST SMEAR Negative (()); AFB SPECIMEN PROCESSING Concentration (())
[2018-12-29 20:57] VITALS: BP 122/67
--- NOTE | 2018-12-29 21:29 | NUR ---
AWAKE IN BED SRX2 LUNGS CLEAR SKIN WARM AND DRY EDEMA TO FEET SOME BETTER PITTING AT 2
[2018-12-29 23:59] VITALS: BP 113/63
--- NOTE | 2018-12-30 02:35 | NUR ---
I have reviewed this patient and I concur with the Shift Assessment completed by the Licensed Practical Nurse today this shift.
[2018-12-30 05:27] VITALS: BP 86/48
[2018-12-30 06:11] LABS: BASOPHILS 0 % (0-2); EOSINOPHILS 0.2 % (0-7); HEMATOCRIT 40.3 % (42.0-54.0); HEMOGLOBIN 13.2 g/dL (13.5-17.5); IMMATURE GRANULOCYTES 0.9 % (0-5); LYMPHOCYTES 3.5 % (15-50); MCH 30.3 pg (26.0-34.0); MCHC 32.8 g/dL (31.0-37.0); MCV 92.6 fL (80.0-100.0); MEAN PLATELET VOLUME 10.5 fL (7.4-10.4); MONOCYTES 8.7 % (2-11); NEUTROPHILS 86.7 % (40-80); PLATELET COUNT 203 10x3/uL (130-400); RBC 4.35 10x6/uL (4.20-6.10); RDW 12.9 % (11.5-14.5); WBC 13.2 10x3/uL (4.8-10.8)
[2018-12-30 06:28] LABS: CALC OSMOLALITY 284 mosm/kg (275-300); CALCIUM 8.2 mg/dL (8.5-10.1); CARBON DIOXIDE 34.9 mmol/L (21.0-32.0); CHLORIDE - SERUM 97 mmol/L (98-107); CREATININE - SERUM 0.9 mg/dL (0.6-1.3); POTASSIUM - SERUM 4.2 mmol/L (3.5-5.1); SODIUM 134 mmol/L (136-145); UREA NITROGEN 31 mg/dL (7-18); eGFR NON AFRICAN AMERICAN 90 mL/min (90-120)
[2018-12-30 06:29] LABS: GLUCOSE 280 mg/dL (74-106)
[2018-12-30 08:48] VITALS: BP 110/68
[2018-12-30 12:44] VITALS: BP 121/64
--- NOTE | 2018-12-30 14:14 | NUR ---
Diabetic diet with 100% intake of meals Pt having a BM now Reviewed chart BG is running high for BG checks Plans to d/c tomorrow. Will provide diabetic education material RD following
[2018-12-30 17:09] VITALS: BP 100/55
--- NOTE | 2018-12-30 17:53 | NUR ---
BS 475. 20 U GIVEN AND WILL RECHECK IN [address] DAUGHERTY.
--- NOTE | 2018-12-30 19:36 | NUR ---
RECIEVED BEDSIDE REPORT. ROUNDS COMPLETED. VSS, AAOX4. NO S/S OF RR DISTRESS, RR EVEN AND UNLABORED. FOUND PT SITTING IN THE CHAIR PT STATES HE DID NOT DO MUCH TODAY, STATES HE IS BEEN SITTING ALL DAY. PT BLOOD SUGAR WAS 571. NOTIFIED DR HECK, DR HECK STATES TO GIVE 20 UNITS PER SLIDING SCALE. PT CURRENTLY DENIES ANY NEEDS AT THIS TIME. WILL CPOC. CL IN REACH, BED IN LOW SR UP X2.
[2018-12-30 20:00] VITALS: BP 104/63
[2018-12-30 22:06] LABS: IMMUNOGLOBULIN E 10 IU/mL (6-495)
[2018-12-31] VITALS: BP 101/55
[2018-12-31] MEDS ORDERED: PREDNISONE20 MG PO (00:45)
[2018-12-31] MEDS ORDERED: TYLENOL W/CODEI1 TAB PO (00:46)
[2018-12-31] MEDS ORDERED: OMNICEF300 MG PO (00:47)
[2018-12-31] MEDS ORDERED: CARDIZEM60 MG PO (00:47)
[2018-12-31] MEDS ORDERED: VIBRAMYCIN 100100 MG PO (00:47)
[2018-12-31] MEDS ORDERED: NEURONTIN 400400 MG PO (00:48)
--- NOTE | 2018-12-31 01:15 | NUR ---
PT CURRENTLY RESTING IN BED WITH EYES CLOSE. WILL CPOC. CL IN REACH, BED IN LOW, SR UP X2.
[2018-12-31 04:00] VITALS: BP 116/66
--- NOTE | 2018-12-31 07:41 | NUR ---
PT AWAKE AND ORIENTED. VERY PLESANT, STATES HE ONLY WANTS HIS BREAKFAST. REFUSED ALL MORNING TREATMENTS, MEDICATIONS, VS EXT. PT HAS D/C IN, IS WAITING UNTIL THE D/C NURSE ARVIES AND IS ABLE TO DO IT.
--- NOTE | 2018-12-31 09:25 | MORECARE ---
CASE MANAGEMENT DISCHARGE SUMMARY PATIENT: REBECA LAWSON UNIT: [id number] ADM DATE: 12/24/18 AGE: 63 : 53 SEX: M ROOM/BED: D.9373 AUTHOR: DEVIDOC PHYSICIAN: REFERRING PHYSICIAN: TITI DAUGHERTY MD DATE OF SERVICE: 12/31/18 Discharge Plan Patient Name: REBECA LAWSON Facility: [facility]:[place] : 1955 Planned Disposition: Home with Home Health Anticipated Discharge Date: 12/31/18 Discharge Date: Expected LOS: 7 Initial Reviewer: [id number] Initial Review Date: 12/24/2018 Generated: 12/31/18 10:25 am Comments DCP- Discharge Planning Updated by [id number]: Balwinder Kimble on 12/29/18 2:[address] Patient Name: REBECA LAWSON Encounter No: [id number] : 1955 Primary Insurance: [facility] MEDICARE SOLUTIONS Anticipated DC Date: 12-30-2018 Planned Disposition: Home with Home Health External Planned Provider: : [facility] DCP follow-up note: CM RECEIVED HOME HEALTH ORDER, MET WITH PT IN ROOM, DISCUSSED AVAILABILITY OF HOME HEALTH, REHAB SERVICES AND MEDICAL EQUIPMENT. PT DENIES NEED OF REHAB PLACEMENT, PT STATES HE DOES NOT NEED PHYSICAL THERAPY WITH HOME HEALTH HE FEELS THAT HE WOULD NOT BENEFIT FROM THERAPY. PT WOULD LIKE HOME HEALTH NURSE TO CHECK ON HIM AND AIDE TO HELP HIM BATHE; PT ASKED ABOUT HAVING SAND AND GRAVEL PLANT OPERATOR SERVICES TO SIT WITH HIM AT NIGHT. CM EXPLAINED THAT PT'S INSURANCE WILL NOT PAY FOR SAND AND GRAVEL PLANT OPERATOR SERVICES AND PROVIDED NUMBER AND BROCHURE TO " A PLACE FOR MOM" TO ASSIST WITH EVALUATING PT'S FINANCIAL SITUATION AND REFERRAL TO APPROPRIATE HOME CARE AGENCY. PT DENIES THE NEED AT THIS TIME. PT REPORTS A FRIEND WILL TRANSPORT HOME AT DISCHARGE. CHOICE LISTING FOR HOME HEALTH PROVIDED, PT SIGNED CHOICE FOR [facility]. IMPORTANT MESSAGE FROM MEDICARE PROVIDED AND EXPLAINED. CM CALLED [facility], , SPOKE TO YOANDY, REFERRAL PROVIDED, PT PLACED ON SCHEDULE FOR THURSDAY, THEY ARE IN NETWORK WITH PT'S INSURANCE. CM FAXED REFERRALTO [facility] AT [phone]. PT NOTIFIED AND IN AGREEMENT WITH DISCHARGE PLAN. FOR DISCHARGE, CALL AND NOTIFY [facility], , FAX DISCHARGE INFORMATION TO [facility] AT [phone]. Balwinder Kimble, CASE MANAGEMENT DCP- Discharge Planning Updated by [id number]: Debbie Alexander on 12/24/18 11:[address] Patient Name: REBECA LAWSON Admission Status: ER Accout number: [id number] Admission Date: 12-24-2018 : 1955 Admission Diagnosis: Attending: TITI DAUGHERTY Current LOS: 1 Anticipated DC Date: 12-26-2018 Planned Disposition: Home Primary Insurance: [facility] MEDICARE SOLUTIONS Discharge Planning Comments: CM met with patient to complete initial dc planning assessment. CM educated patient on the CM role and verbal consent given by patient to complete assessment. Patient lives at home alone and reports he is independent in his care at home. At discharge patient plans to return home alone and feels this is a safe discharge. CM discussed availability of home health, rehab services, and medical equipment. Patient denied known discharge needs at this time. He said he may need something but not sure today. CM will continue to follow and will assist as needed with dc plans/needs. Slurry Control Operator Helper: Debbie Alexander RN, [facility] DCPIA - Discharge Planning Initial Assessment Updated by [id number]: Debbie Alexander on 12/24/18 12:20 pm * Is the patient Alert and Oriented? Yes * How many steps to enter\\exit or inside your home? none * PCP Dr. Daugherty * Pharmacy [facility] on [facility] * Preadmission Environment Home Alone * ADLs Independent * Equipment Cane Glucometer Power Chair or Electric Scooter * List name and contact numbers for known caregivers / representatives who currently or will assist patient after discharge: Meagan Quinteros - apartment community manager - [phone] * Verbal permission to speak to the caregivers and representatives has been obtained from the patient. Yes * Community resources currently utilized None * Additional services required to return to the preadmission environment? No * Can the patient safely return to the preadmission environment? Yes * Has this patient been hospitalized within the prior 30 days at any hospital? No Coverage Notice Reviewer: [id number] - Balwinder Kimble Notice Issued Date-Time: 12/29/2018 9:25 Notice Type: IM Discharge Notice Notice Delivered To: Patient Relationship to Patient: Homicide Squad Sergeant Name: Delivery Method: HAND - Hand Delivered Adri Days: Prior Verbal Notification: Recipient Understood Notice: Yes Recipient Signature: Yes Med Rec Note Co-signed by Attending: Coverage Notice Comment: Reviewer: [id number] Iván Kimble Notice Issued Date-Time: 12/29/2018 9:25 Notice Type: Patient Choice Letter Notice Delivered To: Patient Relationship to Patient: Homicide Squad Sergeant Name: Delivery Method: HAND - Hand Delivered Adri Days: Prior Verbal Notification: Recipient Understood Notice: Yes Recipient Signature: Yes Med Rec Note Co-signed by Attending: Coverage Notice Comment: [facility], LONG IN NETWORK WITH INSURANCE Last DP export: 12/29/18 2:32 p Patient Name: REBECA LAWSON Page 03725 at 0925 All edits/amendments must be made on the electronic document DICTATION DATE: 12/31/18923 GAME AGENT: AGUSTIN 12/31/18923 RPT#: [id number] DC DATE: STATUS: ADM IN [facility] [address] [place] [address] END OF REPORT
--- NOTE | 2018-12-31 09:32 | MORECARE ---
CASE MANAGEMENT DISCHARGE SUMMARY PATIENT: REBECA LAWSON UNIT: [id number] ADM DATE: 12/24/18 AGE: 63 : 53 SEX: M ROOM/BED: D.6752 AUTHOR: DEVI,DOC PHYSICIAN: REFERRING PHYSICIAN: TITI DAUGHERTY MD DATE OF SERVICE: 12/31/18 Discharge Plan Patient Name: REBECA LAWSON Facility: [facility]:[place] : 1955 Planned Disposition: Home with Home Health Anticipated Discharge Date: 12/31/18 Discharge Date: Expected LOS: 7 Initial Reviewer: [id number] Initial Review Date: 12/24/2018 Generated: 12/31/18 10:32 am Comments DCP- Discharge Planning Updated by [id number]: Balwinder Kimble on 12/31/18 8:[address] Patient Name: REBECA LAWSON Encounter No: [id number] : 1955 Primary Insurance: C MEDICARE SOLUTIONS Anticipated DC Date: 12-31-2018 Planned Disposition: Home with Home Health External Planned Provider: [facility] DCP follow-up note: CM SPOKE TO PT WHO WAS GETTING DRESSED, PT INFORMS CM HE IS DISCHARGING TODAY AND A FRIEND IS PICKING HIM UP SHORTLY. PT IS STILL AGREEABLE WITH HOME HEALTH, DENIES FURTHER DISCHARGE NEEDS. CM CALLED AND NOTIFIED YOANDY OF [facility], , FAXED DISCHARGE INFORMATION TO [facility] AT [phone]. LABORATORY CHEMIST NURSE NOTIFIED. Balwinder Kimble, CASE MANAGEMENT DCP- Discharge Planning Updated by [id number]: Balwinder Kimble on 12/29/18 2:[address] Patient Name: REBECA LAWSON Encounter No: [id number] : 1955 Primary Insurance: [facility] MEDICARE SOLUTIONS Anticipated DC Date: 12-30-2018 Planned Disposition: Home with Home Health External Planned Provider: : [facility] DCP follow-up note: CM RECEIVED HOME HEALTH ORDER, MET WITH PT IN ROOM, DISCUSSED AVAILABILITY OF HOME HEALTH, REHAB SERVICES AND MEDICAL EQUIPMENT. PT DENIES NEED OF REHAB PLACEMENT, PT STATES HE DOES NOT NEED PHYSICAL THERAPY WITH HOME HEALTH HE FEELS THAT HE WOULD NOT BENEFIT FROM THERAPY. PT WOULD LIKE HOME HEALTH NURSE TO CHECK ON HIM AND AIDE TO HELP HIM BATHE; PT ASKED ABOUT HAVING MEMORIAL DESIGNER SERVICES TO SIT WITH HIM AT NIGHT. CM EXPLAINED THAT PT'S INSURANCE WILL NOT PAY FOR MEMORIAL DESIGNER SERVICES AND PROVIDED NUMBER AND BROCHURE TO " A PLACE FOR MOM" TO ASSIST WITH EVALUATING PT'S FINANCIAL SITUATION AND REFERRAL TO APPROPRIATE HOME CARE AGENCY. PT DENIES THE NEED AT THIS TIME. PT REPORTS A FRIEND WILL TRANSPORT HOME AT DISCHARGE. CHOICE LISTING FOR HOME HEALTH PROVIDED, PT SIGNED CHOICE FOR [facility] OR [facility]. IMPORTANT MESSAGE FROM MEDICARE PROVIDED AND EXPLAINED. CM CALLED [facility], , SPOKE TO YOANDY, REFERRAL PROVIDED, PT PLACED ON SCHEDULE FOR THURSDAY, THEY ARE IN NETWORK WITH PT'S INSURANCE. CM FAXED REFERRALTO [facility] AT [phone]. PT NOTIFIED AND IN AGREEMENT WITH DISCHARGE PLAN. FOR DISCHARGE, CALL AND NOTIFY [facility], , FAX DISCHARGE INFORMATION TO [facility] AT [phone]. Balwinder Kimble, CASE MANAGEMENT DCP- Discharge Planning Updated by [id number]: Debbie Alexander on 12/24/18 11:[address] Patient Name: REBECA LAWSON Admission Status: ER Accout number: [id number] Admission Date: 12-24-2018 : 1955 Admission Diagnosis: Attending: TITI DAUGHERTY Current LOS: 1 Anticipated DC Date: 12-26-2018 Planned Disposition: Home Primary Insurance: [facility] MEDICARE SOLUTIONS Discharge Planning Comments: CM met with patient to complete initial dc planning assessment. CM educated patient on the CM role and verbal consent given by patient to complete assessment. Patient lives at home alone and reports he is independent in his care at home. At discharge patient plans to return home alone and feels this is a safe discharge. CM discussed availability of home health, rehab services, and medical equipment. Patient denied known discharge needs at this time. He said he may need something but not sure today. CM will continue to follow and will assist as needed with dc plans/needs. External Grinder Tool: Debbie Alexander RN, [facility] DCPIA - Discharge Planning Initial Assessment Updated by [email or web address]: Debbie Alexander on 12/24/18 12:20 pm * Is the patient Alert and Oriented? Yes * How many steps to enter\\exit or inside your home? none * PCP Dr. Daugherty * Pharmacy [facility] on [address] * Preadmission Environment Home Alone * ADLs Independent * Equipment Cane Glucometer Power Chair or Electric Scooter * List name and contact numbers for known caregivers / representatives who currently or will assist patient after discharge: Meagan Quinteros - division merchandise manager - [phone] * Verbal permission to speak to the caregivers and representatives has been obtained from the patient. Yes * Community resources currently utilized None * Additional services required to return to the preadmission environment? No * Can the patient safely return to the preadmission environment? Yes * Has this patient been hospitalized within the prior 30 days at any hospital? No Coverage Notice Reviewer: [id number] Kimble Notice Issued Date-Time: 12/29/2018 9:25 Notice Type: IM Discharge Notice Notice Delivered To: Patient Relationship to Patient: Subway Train Operator Name: Delivery Method: HAND - Hand Delivered Adri Days: Prior Verbal Notification: Recipient Understood Notice: Yes Recipient Signature: Yes Med Rec Note Co-signed by Attending: Coverage Notice Comment: Reviewer: GARRET Kimble Notice Issued Date-Time: 12/29/2018 9:25 Notice Type: Patient Choice Letter Notice Delivered To: Patient Relationship to Patient: Subway Train Operator Name: Delivery Method: HAND - Hand Delivered Adri Days: Prior Verbal Notification: Recipient Understood Notice: Yes Recipient Signature: Yes Med Rec Note Co-signed by Attending: Coverage Notice Comment: [facility], LONG IN NETWORK WITH INSURANCE Last DP export: 12/31/18 8:25 a Patient Name: REBECA LAWSON Page 48992 at 0932 All edits/amendments must be made on the electronic document DICTATION DATE: 12/31/18931 BURNER TENDER: AGUSTIN 12/31/18 0932 RPT#: [id number] DC DATE: STATUS: ADM IN [facility] [address] [place] [address] END OF REPORT
--- NOTE | 2018-12-31 09:33 | NUR ---
ESCORTED OUT VIA WHEELCHAIR BY TECH. SON DRIVING POV.
[2019-01-04 10:18] LABS: FUNGUS MYCOLOGY CULTURE Preliminary report (())
== END 2018-12-31 09:34 | disposition home health service (06) | DRG 871 ==
LOC: D.ER 06:15 → D.M3 09:06 → D.M2 09:06 → D.EDHOLD 10:37 → D.M2 11:47
PROVIDERS: Family Medicine; General Practice; Internal Medicine Pulmonary Disease; ADMIT Family Medicine; ATTEND Family Medicine
PROC: 0W993ZZ Drainage of Right Pleural Cavity, Percutaneous Approach (ICD-10-PCS; principal; 2018-12-27 16:45)
DX: A41.9 Sepsis, unspecified organism (principal); J18.9 Pneumonia, unspecified organism; I50.23 Acute on chronic systolic (congestive) heart failure; J98.11 Atelectasis; R04.2 Hemoptysis; E11.9 Type 2 diabetes mellitus without complications; I25.10 Atherosclerotic heart disease of native coronary artery without angina pectoris; I48.91 Unspecified atrial fibrillation; I25.5 Ischemic cardiomyopathy; J30.9 Allergic rhinitis, unspecified; I11.0 Hypertensive heart disease with heart failure; Z85.118 Personal history of other malignant neoplasm of bronchus and lung

== ENCOUNTER 2020-12-05 01:40 | Inpatient (IN) | payer MEDICARE ==
[2020-12-05] VITALS (10 sets, daily range): BP systolic 85–162; BP diastolic 39–98; Ht 190.5 cm; Wt 83.2 kg
[~2020-12-05] VITALS: Ht 190.5 cm; Wt 83.2 kg
[~2020-12-05 01:40] MED LIST: BAYER CHEWABLE81 MG PO; CARDIZEM60 MG PO; COREG6.25 MG PO; FUROSEMIDE20 MG PO; HUMALOG 30100 UNITS/ SC; HUMULIN N100 U/ML; KRILL OIL 1,001 EAC1 PO; LISINOPRIL5 MG; NEURONTIN 300300 MG PO; NEURONTIN 400400 MG PO; OMNICEF300 MG PO; OTC COUGH SYRUP PO; PREDNISONE20 MG PO; TYLENOL W/CODEI1 TAB PO; VIBRAMYCIN 100100 MG PO; ZOCOR10 MG PO
[2020-12-05 02:10] LABS: BASOPHILS 0.1 % (0-2); EOSINOPHILS 0.1 % (0-7); HEMATOCRIT 40.1 % (42.0-54.0); HEMOGLOBIN 12.6 g/dL (13.5-17.5); IMMATURE GRANULOCYTES 0.1 % (0-5); LYMPHOCYTE ABS# 0.23 10x3/uL (1.32-3.57); LYMPHOCYTES 2.9 % (15-50); MCH 30.4 pg (26.0-34.0); MCHC 31.4 g/dL (31.0-37.0); MCV 96.9 fL (80.0-100.0); NEUTROPHIL ABS# 7.01 10x3/uL (1.78-5.38); NEUTROPHILS 88.8 % (40-80); PLATELET COUNT 217 10x3/uL (130-400); RBC 4.14 10x6/uL (4.20-6.10); RDW 14.4 % (11.5-14.5); WBC 7.9 10x3/uL (4.8-10.8)
[2020-12-05 02:21] LABS: CALC OSMOLALITY 272 mosm/kg (275-300); CALCIUM 8.7 mg/dL (8.5-10.1); CARBON DIOXIDE 35.8 mmol/L (21.0-32.0); CHLORIDE - SERUM 96 mmol/L (98-107); CREATININE - SERUM 0.8 mg/dL (0.6-1.3); POTASSIUM - SERUM 3.6 mmol/L (3.5-5.1); SODIUM 136 mmol/L (136-145); UREA NITROGEN 13 mg/dL (7-18); eGFR NON AFRICAN AMERICAN > 90 mL/min (90-120)
[2020-12-05 02:22] LABS: GLUCOSE 117 mg/dL (74-106)
[2020-12-05 02:23] LABS: APTT 29.6 SECONDS (22.8-39.4); INR 1.27 (0.85-1.17); PROTIME 14.8 SECONDS (11.6-15.0)
[2020-12-05 02:34] LABS: ALBUMIN 2.8 g/dL (3.4-5.0); ALKALINE PHOSPHATASE 175 U/L (30-120); ALT (SGPT) 19 U/L (10-68); BILIRUBIN - TOTAL 0.99 mg/dL (0.2-1.3); CKMB 2.9 U/L (0.0-3.6); MAGNESIUM - SERUM 1.4 mg/dL (1.8-2.4); PROTEIN - SERUM 7.7 g/dL (6.4-8.2); TROPONIN-I 0.032 ng/mL (0.000-0.060)
[2020-12-05 02:36] LABS: CREATINE KINASE 1259 UL (21-232)
[2020-12-05 04:13] LABS: THYROID STIMULATING HORMONE 1.42 uIU/mL (0.36-3.74)
[2020-12-05 10:53] LABS: SARS-CoV-2 ANTIGEN NEGATIVE- SARS-COV-2 (NEGATIVE)
[2020-12-05 11:39] LABS: CKMB 1.8 U/L (0.0-3.6)
[2020-12-05 11:53] LABS: CREATINE KINASE 936 UL (21-232)
[2020-12-05 15:15] LABS: CKMB 1.4 U/L (0.0-3.6); TROPONIN-I 0.042 ng/mL (0.000-0.060)
[2020-12-05 15:19] LABS: CREATINE KINASE 831 UL (21-232)
--- NOTE | 2020-12-05 18:55 | NUR ---
AMIODARONE GTT STOPPED IN ER AT 1905 BUT CONT'D IN ICU. NEW GTT RATE IS 0.5MG/MIN PER TATE W/ CARDIOLOGY.
--- NOTE | 2020-12-05 21:10 | NUR ---
PT REC'D AT THIS TIME FROM ER. ICU MONITORING APPLIED. PT AOX4, ANSWERS MOST QUESTIONS. DIMINISHED LUNG SOUNDS, SPO2 100 ON 2L O2 VIA NC. HR 43, PULSES PRESENT. BOWEL SOUNDS ACTIVE IN ALL QUADRANTS. LOWER EXTREMITIES EDEMATOUS. PT REPOSITIONED FOR COMFORT, PROMINENCES BRIDGED, HOB ELEVATED. COUGH/DB WITH GOOD EFFORT. ORAL CARE PROVIDED. CALL LIGHT WITHIN PT REACH. CPOC.
--- NOTE | 2020-12-05 21:29 | NUR ---
KEVIN PAGED REGARDING PT CONSULT
--- NOTE | 2020-12-05 21:37 | NUR ---
REC'D CALLBACK FROM KEVIN, INFORMED OF CONSULT AND GIVEN PT UPDATE.
[2020-12-05 22:26] LABS: CKMB 0.8 U/L (0.0-3.6); CREATINE KINASE 639 UL (21-232); TROPONIN-I 0.031 ng/mL (0.000-0.060)
--- NOTE | 2020-12-05 23:43 | NUR ---
PRIMARY CONTACTED AT THIS TIME, PT HAS
--- NOTE | 2020-12-05 23:55 | NUR ---
DR. ARIAS AT BEDSIDE TO PRONOUNCE TIME OF .
--- NOTE | 2020-12-06 | NUR ---
PT HOME PHONE NUMBER ON FACESHEET IS NO LONGER A WORKING PHONE NUMBER
--- NOTE | 2020-12-06 | NUR ---
ATTEMPT MADE TO CONTACT JONELLE ARECHGIA, NUMBER ON FACESHEET WAS FOR [facility] WHERE PT LIVES. THEY REPORTED THAT JONELLE ARECHIGA NO LONGER WORKS THERE. INQUIRED ABOUT NEXT OF KIN/FRIEND/EMERGENCY CONTACT THAT FACILITY MAY HAVE DOCUMENTED FOR RESIDENT, UNABLE TO RECEIVE ANY INFORMATION.
--- NOTE | 2020-12-06 07:58 | NUR ---
SPOKE WITH KELLEN FROM [facility] WOULD LIKE TO BE NOTIFIED WHEN BODY RELEASED. CELL # [phone] [facility]
--- NOTE | 2020-12-06 09:04 | HP ---
PATIENT: REBECA LAWSON MEDICAL RECORD: [id number] ACCOUNT: [id number] LOCATION:[facility] D.[id number] : 54 ADMISSION DATE: 12/05/20 PCP: TITI DAUGHERTY MD HISTORY AND PHYSICAL EXAMINATION DATE OF ADMISSION: 12/05/2020 CHIEF COMPLAINT: "Feels like I am not getting any air." HISTORY OF PRESENT ILLNESS: This is a 65-year-old white male who has a history of type 1 diabetes, coronary artery disease, history of small cell lung cancer, treated with chemo and radiation starting in 2007, chronic lower back pain, using the power chair who presents with above symptoms. The patient states he fell 2 or 3 days ago and was on the floor for hours before he was assisted back up. In the Emergency Department, his CK was elevated initially at 1259. It has gone down to 936. His troponin was in the normal range, elevated D-dimer, proBNP of 3225 magnesium a little low at 1.4. Chest x-ray compared to previous approximately 2 years ago showed increase in right pleural effusion with persistent multifocal airspace disease. A CT of the chest showed volume loss, right hemithorax and persistent pleural-parenchymal right upper lobe cavity cystic changes. He has moderate pleural effusion with mixed attenuation of uncertain significance. On telemetry, he has arrhythmias with heart rate running in the 30s, up to 70s. He is admitted. PAST MEDICAL HISTORY: He has type 1 diabetes, is under fair control with insulin. He has a history of coronary artery disease with 2 known stents [place] [address] Clarke. He has high triglycerides, history of small cell lung cancer diagnosed in 2007, treated with chemo and radiation. He used to see Dr. Choudhary, but has not seen him in a couple of years with chronic lung problems. He has been seen by Dr. Burton, but he has not seen him in quite some time. He got mad at the front office staff about appointments and just stopped going. He has a history of osteoarthritis and scoliosis in the lower back with chronic pain. He saw Dr. Sabillon in the past. He has a power chair. PAST SURGICAL HISTORY: Cataract repair, two coronary artery stents, knee surgery times 3, left shoulder surgery. HOME MEDICATIONS: Tylenol No. 4 one or two pills three times a day as needed for chronic pain, Lantus insulin 50 units twice a day, gabapentin 400 mg 3 in the morning and 3 in the evening, diltiazem 60 mg twice a day, he also takes krill oil. ALLERGIES: NO KNOWN DRUG ALLERGIES. FAMILY HISTORY: Father at age 80, he had hypertension. Mother in an MVA. SOCIAL HISTORY: He is . He is a retired banker. He has a PhD degree. HABITS: Former smoker. Denies alcohol or drugs. REVIEW OF SYSTEMS: GENERAL: No major weight changes in the last few months. HEENT: No particular sinus or allergy problems. RESPIRATORY: He has history of lung cancer and scarring in his lungs. HISTORY AND PHYSICAL [id number] REBECA LAWSON CARDIAC: History of coronary disease, possible history of paroxysmal atrial fibrillation. GASTROINTESTINAL: He denies trouble with diarrhea, constipation, or heartburn. GENITOURINARY: No significant problems there. MUSCULOSKELETAL: He has arthritic aches complaints. NEUROLOGIC: No migraines or seizures. PSYCHIATRIC: Denies depression or melancholia. PHYSICAL EXAMINATION: VITAL SIGNS: Temperature 98.2, heart rate runs from 40s up to 70s, respirations 18, blood pressure 155/53, O2 sat is upper 90s. GENERAL: He is awake and alert. He is complaining of pain in his hands and back. HEENT: Grossly within normal limits. NECK: Supple. HEART: With irregular rate and rhythm. ABDOMEN: Soft. EXTREMITIES: 3+ edema bilaterally. LUNGS: Diminished breath sounds, especially on the right. LABORATORY AND DIAGNOSTIC DATA: First CK was 1259, second one was 936, troponin 0.030. D-dimer elevated at 2.54. Lactic acid normal at 1.4. ProBNP 3225, TSH 1.42. Magnesium 1.4. CBC showed a white count of 7900, hemoglobin 12.6, hematocrit 40.1. Sodium 136, potassium 3.6, chloride 96, CO2 35.8, BUN 13, creatinine 0.8, glucose 117, calcium 8.7. AST elevated at 73, ALT normal at 19. Alkaline phosphatase a little elevated at 175. CT of the head shows no acute processes. Chest x-ray shows increased right pleural effusion compared with previous film done in 2019. There is also persistent multifocal airspace disease. CT of the chest with contrast showed volume loss right hemithorax and persistent pleural-parenchymal right upper lobe cavitary cystic changes. There is mixed attenuation, moderate sized pleural effusion of uncertain significance. ASSESSMENT: 1. Cardiac arrhythmia. 2. Shortness of breath. 3. Increased right pleural effusion. 4. History of small cell lung cancer from 2007, treated with chemo and radiation. 5. Type 1 diabetes. 6. Chronic pain due to low back pains. He is in a power chair. PLAN: Because of his arrhythmias, we will admit to ICU. No beds were available at this point, so he is still in the ED. Cardiology has been consulted. With his pleural effusion, we will ask pulmonary to see him. He used to see Dr. Burton but states he stopped going because he got mad at Dr. Burton's office staff about scheduling an appointment. He has not seen Dr. Choudhary in years for the history of small cell lung cancer, I am not sure why. Other tests or procedures as warranted. TRANSINT:[id number] Voice Confirmation ID: [id number] DOCUMENT ID: [id number] HISTORY AND PHYSICAL [id number] REBECA LAWSON WILLIAM MD at 0904 CC: [id number] DICTATION DATE: 12/05/20 1433 ADVERTISING SALES MANAGER: 12/05/20 1517 DIS IN 12/05/20 [facility] [address] [place] [address]
== END 2020-12-05 23:55 | DRG 308 ==
LOC: D.ER 01:40 → D.EDHOLD 09:46 → D.ICU 19:38
PROVIDERS: Family Medicine; ADMIT Family Medicine; ATTEND Family Medicine
DX: I49.5 Sick sinus syndrome (principal); I50.23 Acute on chronic systolic (congestive) heart failure; J90 Pleural effusion, not elsewhere classified; I48.20 Chronic atrial fibrillation, unspecified; I11.0 Hypertensive heart disease with heart failure; E10.9 Type 1 diabetes mellitus without complications; G89.29 Other chronic pain; E78.5 Hyperlipidemia, unspecified; I49.9 Cardiac arrhythmia, unspecified; I25.10 Atherosclerotic heart disease of native coronary artery without angina pectoris; I25.5 Ischemic cardiomyopathy